=== PATIENT | male | born 1960 | race Two or more races ===

== ENCOUNTER 2022-05-08 13:16 | Emergency (ER) | payer OTHER ==
[~2022-05-08] VITALS: Ht 188 cm; Wt 101.6 kg
--- NOTE | 2022-05-08 13:30 | NUR ---
Patient came in to the er c/o RUQ pain x 2 days. On room air, breathing evenly and unlabored. Connected to the monitor and pulse ox. Kept comfortable, will continue to monitor accordingly.
--- NOTE | 2022-05-08 13:58 | NUR ---
IV access initiated and blood drawned and sent to lab.
--- NOTE | 2022-05-08 14:30 | NUR ---
electrical tech at bedside for exam.
[2022-05-08 14:37] LABS: CALCIUM, SERUM 8.6 mg/dL (8.5-10.1); CREATININE 0.8 mg/dL (0.6-1.3); POTASSIUM 4.1 mmol/L (3.5-5.1)
[2022-05-08 14:42] LABS: BASOPHILS % (AUTO) 0.5 % (0.0-2.0); EOSINOPHILS % (AUTO) 3.8 % (0.0-6.0); HEMATOCRIT 40 % (39-51); HEMOGLOBIN 13.5 g/dL (13.5-17.5); LYMPHOCYTES # (AUTO) 1.4 K/uL (0.8-4.8); MEAN CORPUSCULAR HGB CONC 34 g/dl (31.0-36.0); MEAN CORPUSCULAR VOLUME 91 fL (80-96); MONOCYTES # (AUTO) 0.4 K/uL (0.1-1.30); NEUTROPHILS % (AUTO) 50.7 % (43.0-81.0); PLATELET COUNT (AUTO) 179 K/uL (150-450); RED BLOOD CELL COUNT(AUTO) 4.42 MIL/uL (4.5-6.0)
[2022-05-08 14:44] LABS: BILIRUBIN,DIRECT 0.1 mg/dL (0.0-0.2); BILIRUBIN,TOTAL 0.6 mg/dL (0.2-1.0); TOTAL PROTEIN, SERUM 7.4 g/dL (6.4-8.2)
[2022-05-08 15:24] LABS: BILIRUBIN,URINE NEGATIVE (NEGATIVE); COLOR,URINE YELLOW (YELLOW); LEUKOCYTE ESTERASE ,URINE TRACE (NEGATIVE); NITRITE, URINE NEGATIVE (NEGATIVE); PROTEIN,URINE NEGATIVE (NEGATIVE); UGLUCOSE NEGATIVE (NEGATIVE); UROBILINOGEN,URINE 0.2 EU/dL (0.2)
[2022-05-08] MEDS ORDERED: TYL2T PO (15:38)
[2022-05-08] MEDS ORDERED: ONDA4TAB5 PO (15:38)
[2022-05-08 16:27] LABS: BACTERIA,URINE RARE /HPF (None Seen); MUCUS,URINE Few /LPF (None Seen); SQUAMOUS EPITHELIAL CELL,UR 0-2 /HPF (None Seen)
[2022-05-08 16:49] VITALS: BP 130/81
--- NOTE | 2022-05-08 16:49 | NUR ---
Patient discharged to home in stable condition. Written and verbal after care instructions given. Patient verbalizes understanding of instruction.IV removed. Catheter intact and site benign. Pressure and 4x4 applied to site. No bleeding noted.
== END 2022-05-08 16:49 | disposition home or self-care (01) ==
LOC: ER 13:24
DX: K80.50 Calculus of bile duct without cholangitis or cholecystitis without obstruction (principal); Z60.2 Problems related to living alone
CPT/HCPCS: 36415; 71045-TC; 76705-TC; 80048-TC; 80076-TC; 81001; 83690-TC; 85025-TC

== ENCOUNTER 2024-11-26 11:42 | Emergency (ER) | payer OTHER ==
[~2024-11-26] VITALS: Ht 190.5 cm; Wt 99.8 kg
[~2024-11-26 11:42] MED LIST: ONDA4TAB5 PO; TYL2T PO
[2024-11-26 12:25] LABS: BASOPHILS % (AUTO) 0.3 % (0.0-2.0); CALCIUM, SERUM 8.7 mg/dL (8.5-10.1); CARBON DIOXIDE 26 mmol/L (21-32); CHLORIDE 109 mmol/L (98-107); CREATININE 0.9 mg/dL (0.6-1.3); EOSINOPHILS # (AUTO) 0.1 K/uL (0.0-0.7); EOSINOPHILS % (AUTO) 2.1 % (0.0-6.0); GLUCOSE 103 mg/dL (74-106); HEMATOCRIT 42 % (39-51); HEMOGLOBIN 14.6 g/dL (13.5-17.5); LYMPHOCYTES # (AUTO) 1.4 K/uL (0.8-4.8); LYMPHOCYTES % (AUTO) 27.7 % (20.0-44.0); MEAN CORPUSCULAR HEMOGLOBIN 32 PG (26.0-33.0); MEAN CORPUSCULAR HGB CONC 34 g/dl (31.0-36.0); MEAN CORPUSCULAR VOLUME 92 fL (80-96); MONOCYTES # (AUTO) 0.4 K/uL (0.1-1.30); MONOCYTES % (AUTO) 7.4 % (2.0-12.0); NEUTROPHILS # (AUTO) 3.1 K/uL (1.8-8.9); NEUTROPHILS % (AUTO) 62.5 % (43.0-81.0); PLATELET COUNT (AUTO) 202 K/uL (150-450); POTASSIUM 3.8 mmol/L (3.5-5.1); RED BLOOD CELL COUNT(AUTO) 4.64 MIL/uL (4.5-6.0); RED CELL DISTRIBUTION WIDTH 12.4 % (11.5-15.0); SODIUM SERUM 144 mmol/L (136-145); UREA NITROGEN, BLOOD 17 mg/dL (7-18)
[2024-11-26] MEDS ORDERED: ASPIRIN 325 MG TABLET ONE (12:27)
[2024-11-26] MEDS ORDERED: NITROGLYCERIN 0.4 MG/TAB BOTTLE ONE (12:27)
[2024-11-26] MEDS: NITROGLYCERIN 0.4 MG/TAB BOTTLE SL ONE (12:31)
[2024-11-26] MEDS: ASPIRIN 325 MG TABLET PO ONE (12:31)
[2024-11-26 12:38] LABS: NT-PRO BNP 24 pg/mL (0-125)
[2024-11-26 15:02] VITALS: BP 112/85; TEMP 97.7; O2SAT 100
== END 2024-11-26 15:02 | disposition home or self-care (01) ==
LOC: ER 11:51
DX: R07.89 Other chest pain (principal); R94.31 Abnormal electrocardiogram [ECG] [EKG]; Z60.2 Problems related to living alone
CPT/HCPCS: 36415; 71045-TC; 80048-TC; 83880; 84484-TC; 85025-TC

== ENCOUNTER 2025-05-19 16:22 | Emergency (ER) | payer MEDICARE, BC ==
[~2025-05-19] VITALS: Ht 190.5 cm; Wt 98.0 kg
[2025-05-19 16:50] LABS: APPEARANCE,URINE CLOUDY (CLEAR); BLOOD, URINE Large Ery/uL (NEGATIVE); LEUKOCYTE ESTERASE ,URINE Negative (NEGATIVE); NITRITE, URINE NEGATIVE (NEGATIVE); UGLUCOSE Negative (NEGATIVE)
[2025-05-19 16:52] LABS: ADD URINE CULTURE YES; HYALINE CASTS, URINE Few /LPF (None Seen); SQUAMOUS EPITHELIAL CELL,UR Rare /HPF (None Seen); URINE AMORPHOUS PHOSPHATES Moderate /HPF (None Seen)
[2025-05-19 18:21] LABS: PLATELET COUNT (AUTO) 180 K/uL (150-450); RED BLOOD CELL COUNT(AUTO) 4.40 MIL/uL (4.5-6.0); RED CELL DISTRIBUTION WIDTH 12.3 % (11.5-15.0); WHITE BLOOD COUNT (AUTO) 4.1 K/uL (4.3-11.0)
[2025-05-19 18:27] LABS: CALCIUM, SERUM 8.8 mg/dL (8.5-10.1); CREATININE 1.0 mg/dL (0.6-1.3); SODIUM SERUM 140.0 mmol/L (136-145); UREA NITROGEN, BLOOD 17.0 mg/dL (7-18)
[2025-05-19 18:28] LABS: INR 0.99 (0.91-1.10)
[2025-05-19 20:04] VITALS: BP 122/68; TEMP 98.2; O2SAT 99
== END 2025-05-19 20:05 | disposition home or self-care (01) ==
LOC: ER 16:28
DX: R31.9 Hematuria, unspecified (principal)
CPT/HCPCS: 36415; 76770-TC; 80048-TC; 81001; 85025-TC; 85610-TC; 87086-TC